=== PATIENT | female | born 1965 | race Caucasian/White ===

== ENCOUNTER 2020-10-14 15:58 | Inpatient (IN) | payer OTHER ==
[~2020-10-14] VITALS: Ht 165.1 cm; Wt 62.8 kg
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
[2020-10-14] MEDS ORDERED: LORazepam 2 MG/ML, 1ML ONE (16:14)
[2020-10-14 16:16] LABS: MICROSCOPIC AUTO
[2020-10-14] MEDS ORDERED: PROPOFOL 100 ML IV ONE (16:21)
[2020-10-14 16:22] LABS: MEAN CORPUSCULAR HEMOGLOBIN 28.6 pg (27.0-34.8); MEAN CORPUSCULAR HGB CONC 32.4 g/dL (32.4-35.8); MEAN PLATELET VOLUME 9.1 fL (7.4-10.4); PLATELET COUNT 200 x10^3/uL (130-400); RED BLOOD COUNT 4.41 x10^6/uL (3.82-5.3); RED CELL DISTRIBUTION WIDTH 13.6 % (9.6-15.2)
[2020-10-14] MEDS ORDERED: ETOMIDATE 20 MG/10 ML IV ONE (16:30)
[2020-10-14] MEDS ORDERED: ONDANSETRON 2MG/ML, 2ML IVPush PRN (16:30)
[2020-10-14] MEDS ORDERED: LABETALOL 5MG/ML, 20ML IVPush PRN (16:30)
[2020-10-14] MEDS ORDERED: BISACODYL 10 MG SUPP PR PRN ×2 (16:30→21:30)
[2020-10-14] MEDS ORDERED: ENALAPRILAT 1.25 MG/ML, 2ML IVPush PRN (16:30)
[2020-10-14] MEDS ORDERED: SODIUM CHLORIDE 0.9% 1,000 ML IV ONE (16:30)
[2020-10-14] MEDS ORDERED: SUCCINYLCHOLINE 20 MG/ML, 10ML IV ONE (16:30)
[2020-10-14] MEDS ORDERED: morphine SULFATE 10 MG/ML, 1ML IVPush PRN (16:30)
[2020-10-14] MEDS ORDERED: LORazepam 2 MG/ML, 1ML IVPush ONE (16:30)
[2020-10-14] MEDS: SODIUM CHLORIDE 0.9% 1,000 ML IV SCH (16:30)
[2020-10-14] MEDS ORDERED: POLYETHYLENE GLYCOL 17 GM PACKET PO PRN (16:30)
[2020-10-14] MEDS ORDERED: LORazepam 2 MG/ML, 1ML IVPush PRN (16:30)
--- NOTE | 2020-10-14 16:30 | NUR ---
PT HAVING SX. NOTFIED. 2MG ATIVAN ADM PER VEBAL ORDER. ORDERS TO INUBATE TO PROTECT AIRWAY.
[2020-10-14 16:32] LABS: ALANINE AMINOTRANSFERASE 21 U/L (12-78); ALBUMIN 3.8 g/dL (3.4-5.0); ANION GAP 11 mmol/L (5-15); CALCIUM 8.5 mg/dL (8.5-10.1); CHLORIDE 114 mmol/L (98-107); CREATININE 0.97 mg/dL (0.55-1.02)
[2020-10-14 16:33] LABS: SALICYLATE LEVEL < 1.7 mg/dL (2.8-20.0)
[2020-10-14 16:38] LABS: ALKALINE PHOSPHATASE 80 U/L (45-117); BILIRUBIN,TOTAL 0.2 mg/dL (0.2-1.0); TOTAL PROTEIN 7.1 g/dL (6.4-8.2)
--- NOTE | 2020-10-14 16:40 | NUR ---
PT TUBED. 8.0 ET TUBE. 22 AT THE TEETH. FUNK AND OG TUBE INSERTED
[2020-10-14] MEDS: PROPOFOL 100 ML IV SCH ×3 (16:48→20:50)
[2020-10-14 16:50] LABS: INTERNATIONAL NORMALIZED RATIO 1.06 (0.93-1.1); PROTHROMBIN TIME 11.3 Seconds (9.6-11.5)
[2020-10-14] MEDS ORDERED: PROPOFOL 100 ML IV PRN ×2 (17:00→21:30)
[2020-10-14] MEDS ORDERED: MIDAZOLAM 1 MG/ML, 2ML ONE (17:03)
[2020-10-14 17:04] LABS: MD YES
[2020-10-14 17:06] LABS: BAND#(MANUAL) 0.72 x10^3/uL; BANDS%(MANUAL) 4 % (0-7); BASOS#(MANUAL) 0.18 x10^3/uL (0-0.1); BASOS% (MANUAL) 1 % (0-1); LYMPHS% (MANUAL) 5 % (22-44); MONOS#(MANUAL) 0.54 x10^3/uL (0.3-2.7); MONOS% (MANUAL) 3 % (2-9)
[2020-10-14 17:07] LABS: <PLATELET ESTIMATE> ADEQUATE; <PLT MORPHOLOGY> NORMAL PLT MORPH; <RBC MORPHOLOGY> NORMAL; SEGS% (MANUAL) 87 % (42-75)
[2020-10-14] MEDS: PIPERACILLIN/TAZO 3.375 GM in DEXTROSE 5% 50 ML IV SCH ×2 (17:22→22:25)
[2020-10-14] MEDS ORDERED: SODIUM PHOSPHATE 20 MMOL in SODIUM CHLORIDE 0.9% 500 ML IV ONE (17:30)
[2020-10-14] MEDS ORDERED: MIDAZOLAM 1 MG/ML, 2ML IVPush ONE (17:30)
[2020-10-14] MEDS ORDERED: PHARMACY MAY ADJ FOR RENAL FX MC SCH ×2 (17:30→21:30)
[2020-10-14] MEDS: MIDAZOLAM HCL 50 MG in SODIUM CHLORIDE 0.9% 40 ML IV PRN (18:01)
--- NOTE | 2020-10-14 18:02 | NUR ---
PT RESTLESS. SPOKE WITH MD COCHRAN ABOUT RUNNING VERSED DRIP. SEE MAR FOR INTERVENTIONS. "I ABSOLUTELY WANT THE VERSED DRIP RUNNING"
--- NOTE | 2020-10-14 18:50 | NUR ---
received report from RODNEY Rebolledo. [facility].
--- NOTE | 2020-10-14 19:35 | NUR ---
patient difficult to sedate. propofol and versed drip increased.
--- NOTE | 2020-10-14 19:38 | NUR ---
another IV access placed.
--- NOTE | 2020-10-14 20:28 | NUR ---
report to RODNEY Read
[2020-10-14] MEDS ORDERED: ETOMIDATE 20 MG/10 ML ONE (20:30)
[2020-10-14] MEDS ORDERED: SUCCINYLCHOLINE 20 MG/ML, 10ML ONE (20:30)
[2020-10-14 20:52] LABS: SALICYLATE LEVEL < 1.7 mg/dL (2.8-20.0)
[2020-10-14] MEDS: INSULIN LISPRO 100 UNITS/ML, PEN SQ-INSULIN SCH (21:00)
[2020-10-14] MEDS ORDERED: LIDOCAINE-MPF 1%, 2ML ENDO PRN (21:30)
[2020-10-14] MEDS ORDERED: SENNA/DOCUSATE TABLET NG PRN (21:30)
[2020-10-14] MEDS ORDERED: SENNA 176 MG/5 ML ORAL SOL NG PRN (21:30)
[2020-10-14] MEDS ORDERED: MIDAZOLAM 1 MG/ML, 5ML IVPush PRN (21:30)
[2020-10-14] MEDS ORDERED: LACTULOSE 20 GM/30 ML UDC NG PRN (21:30)
[2020-10-14] MEDS ORDERED: FENTANYL PF 100 MCG/2ML IVPush PRN (21:30)
[2020-10-14] MEDS: FAMOTIDINE 20 MG/2 ML IVPush SCH (22:23)
[2020-10-14] MEDS: HEPARIN 5,000 UNITS/ML, 1ML SQ SCH (22:23)
[2020-10-14 23:27] VITALS: BP 125/82
[2020-10-15 00:17] LABS: AMPHETAMINE SCREEN, URINE Negative (Negative); BARBITURATE SCREEN, URINE Negative (Negative); BENZODIAZEPINE SCREEN, URINE Positive (Negative); CANNABINOID SCREEN, URINE Negative (Negative); COCAINE SCREEN, URINE Negative (Negative); METHADONE SCREEN, URINE Negative (Negative); OPIATE SCREEN, URINE Negative (Negative)
[2020-10-15] MEDS: MIDAZOLAM HCL 50 MG in SODIUM CHLORIDE 0.9% 40 ML IV PRN (00:28)
[2020-10-15] MEDS: SODIUM CHLORIDE 0.9% 1,000 ML IV SCH ×4 (00:28→20:25)
[2020-10-15 04:55] LABS: BASOPHILS % (AUTO) 1 % (0-1); EOSINOPHILS % (AUTO) 0 % (1-7); LYMPHOCYTES % (AUTO) 14 % (22-44); MD NO; MEAN CORPUSCULAR HEMOGLOBIN 29.3 pg (27.0-34.8); MEAN CORPUSCULAR HGB CONC 32.9 g/dL (32.4-35.8); MEAN PLATELET VOLUME 9.2 fL (7.4-10.4); MONOCYTES % (AUTO) 9 % (2-9); NEUTROPHILS % (AUTO) 76 % (42-75); PLATELET COUNT 183 x10^3/uL (130-400); RED BLOOD COUNT 3.79 x10^6/uL (3.82-5.3); RED CELL DISTRIBUTION WIDTH 13.3 % (9.6-15.2)
[2020-10-15 05:01] LABS: ALANINE AMINOTRANSFERASE 25 U/L (12-78); ALBUMIN 3.3 g/dL (3.4-5.0); ANION GAP 8 mmol/L (5-15); CALCIUM 7.9 mg/dL (8.5-10.1); CHLORIDE 118 mmol/L (98-107); CREATININE 0.76 mg/dL (0.55-1.02)
[2020-10-15 05:03] LABS: ALKALINE PHOSPHATASE 62 U/L (45-117); BILIRUBIN,TOTAL 0.3 mg/dL (0.2-1.0); TOTAL PROTEIN 6.2 g/dL (6.4-8.2)
[2020-10-15] MEDS: HEPARIN 5,000 UNITS/ML, 1ML SQ SCH ×3 (05:12→20:25)
[2020-10-15] MEDS: PIPERACILLIN/TAZO 3.375 GM in DEXTROSE 5% 50 ML IV SCH ×4 (05:12→20:26)
[2020-10-15] MEDS: INSULIN LISPRO 100 UNITS/ML, PEN SQ-INSULIN SCH ×4 (06:04→20:28)
[2020-10-15] MEDS: SENNA/DOCUSATE TABLET PO SCH (09:00)
[2020-10-15] MEDS ORDERED: POTASSIUM CHLORIDE 40 MEQ in SODIUM CHLORIDE 0.9% 500 ML IV ONE (09:00)
[2020-10-15] MEDS: FAMOTIDINE 20 MG/2 ML IVPush SCH ×2 (10:27→20:25)
[2020-10-16] MEDS: SODIUM CHLORIDE 0.9% 1,000 ML IV SCH (03:22)
[2020-10-16] MEDS: PIPERACILLIN/TAZO 3.375 GM in DEXTROSE 5% 50 ML IV SCH ×4 (03:22→22:59)
[2020-10-16] MEDS: HEPARIN 5,000 UNITS/ML, 1ML SQ SCH ×2 (04:27→15:18)
[2020-10-16 04:39] LABS: BASOPHILS % (AUTO) 1 % (0-1); EOSINOPHILS % (AUTO) 1 % (1-7); LYMPHOCYTES % (AUTO) 20 % (22-44); MEAN CORPUSCULAR HEMOGLOBIN 29.4 pg (27.0-34.8); MEAN CORPUSCULAR HGB CONC 33.3 g/dL (32.4-35.8); MEAN PLATELET VOLUME 9.2 fL (7.4-10.4); MONOCYTES % (AUTO) 8 % (2-9); NEUTROPHILS % (AUTO) 70 % (42-75); PLATELET COUNT 151 x10^3/uL (130-400); RED CELL DISTRIBUTION WIDTH 13.8 % (9.6-15.2)
[2020-10-16 04:40] LABS: MD NO
[2020-10-16 04:53] LABS: ANION GAP 4 mmol/L (5-15); CALCIUM 8.3 mg/dL (8.5-10.1); CHLORIDE 115 mmol/L (98-107); CREATININE 0.61 mg/dL (0.55-1.02)
[2020-10-16] MEDS: INSULIN LISPRO 100 UNITS/ML, PEN SQ-INSULIN SCH ×2 (05:47→11:00)
[2020-10-16] MEDS: OXYcodone IR 5MG TABLET PO PRN (06:43)
[2020-10-16] MEDS: POTASSIUM CHLORIDE 20 MEQ PACKET PO SCH ×3 (09:05→20:43)
[2020-10-16] MEDS: SENNA/DOCUSATE TABLET PO SCH (09:06)
[2020-10-16] MEDS: FAMOTIDINE 20 MG/2 ML IVPush SCH (09:06)
[2020-10-16 17:05] VITALS: BP 164/104
[2020-10-16 17:12] VITALS: BP 163/103
[2020-10-16] MEDS ORDERED: ENOXAPARIN 40 MG/0.4 ML SQ SCH (17:30)
[2020-10-16] MEDS ORDERED: LABETALOL 5MG/ML, 20ML IVPush PRN (17:30)
[2020-10-16] MEDS: AMLODIPINE 5 MG TABLET PO SCH (17:41)
[2020-10-16 18:29] VITALS: BP 164/113
[2020-10-16 18:49] VITALS: BP 143/92
[2020-10-16 20:36] VITALS: BP 142/90
[2020-10-16] MEDS: LEVETIRACETAM 500 MG TABLET PO SCH (20:42)
[2020-10-17 02:50] VITALS: BP 135/84
[2020-10-17] MEDS: POTASSIUM CHLORIDE 20 MEQ PACKET PO SCH (02:52)
[2020-10-17] MEDS: PIPERACILLIN/TAZO 3.375 GM in DEXTROSE 5% 50 ML IV SCH ×2 (05:00→11:05)
[2020-10-17 05:01] LABS: ALBUMIN 3.3 g/dL (3.4-5.0); ANION GAP 5 mmol/L (5-15); CALCIUM 8.9 mg/dL (8.5-10.1); CHLORIDE 111 mmol/L (98-107)
[2020-10-17 05:03] LABS: CREATININE 0.63 mg/dL (0.55-1.02)
[2020-10-17 05:04] LABS: ALANINE AMINOTRANSFERASE 31 U/L (12-78); ALKALINE PHOSPHATASE 58 U/L (45-117); BILIRUBIN,TOTAL 0.6 mg/dL (0.2-1.0)
[2020-10-17] MEDS: OXYcodone IR 5MG TABLET PO PRN (05:06)
[2020-10-17 05:15] LABS: BASOPHILS % (AUTO) 1 % (0-1); EOSINOPHILS % (AUTO) 2 % (1-7); LYMPHOCYTES % (AUTO) 26 % (22-44); MEAN CORPUSCULAR HEMOGLOBIN 29.4 pg (27.0-34.8); MEAN CORPUSCULAR HGB CONC 33.5 g/dL (32.4-35.8); MEAN PLATELET VOLUME 9.6 fL (7.4-10.4); MONOCYTES % (AUTO) 9 % (2-9); NEUTROPHILS % (AUTO) 62 % (42-75); PLATELET COUNT 177 x10^3/uL (130-400); RED BLOOD COUNT 3.83 x10^6/uL (3.82-5.3); RED CELL DISTRIBUTION WIDTH 13.6 % (9.6-15.2)
[2020-10-17 05:18] LABS: MD NO
[2020-10-17 07:25] VITALS: BP 123/83
[2020-10-17] MEDS: LEVETIRACETAM 500 MG TABLET PO SCH ×2 (08:26→17:42)
[2020-10-17] MEDS: AMLODIPINE 5 MG TABLET PO SCH (08:26)
[2020-10-17] MEDS: SENNA/DOCUSATE TABLET PO SCH (08:26)
[2020-10-17] MEDS ORDERED: GADOTERATE 7.5 MMOL/15ML SYR ONE (13:02)
[2020-10-17 13:37] VITALS: BP 124/84
[2020-10-17] MEDS ORDERED: AMOX1TAB12 PO (16:57)
[2020-10-17] MEDS ORDERED: LEVE500T53 PO (16:57)
[2020-10-17] MEDS ORDERED: AMLO-150 PO (16:57)
[2020-10-17] MEDS ORDERED: AMOXICILLIN/CLAV 875-125MG TABLET ONE (17:41)
[2020-10-17] MEDS ORDERED: AMOXICILLIN/CLAV 875-125MG TABLET PO SCH (21:00)
== END 2020-10-17 18:08 | disposition home or self-care (01) | DRG 208 ==
LOC: ED 16:20 → EDBD 16:25 → EDIP 16:25 → CCU 20:43 → 5SO 10-16 16:22
PROVIDERS: ADMIT Internal Medicine; ATTEND Internal Medicine
PROC: 0BH17EZ Insertion of Endotracheal Airway into Trachea, Via Natural or Artificial Opening (ICD-10-PCS; principal; 2020-10-14)
PROC: 5A1935Z Respiratory Ventilation, Less than 24 Consecutive Hours (ICD-10-PCS; 2020-10-14)
DX: J69.0 Pneumonitis due to inhalation of food and vomit (principal); J96.01 Acute respiratory failure with hypoxia; G93.41 Metabolic encephalopathy; C71.9 Malignant neoplasm of brain, unspecified; E87.0 Hyperosmolality and hypernatremia; E87.1 Hypo-osmolality and hyponatremia; E87.2 Acidosis; Z99.11 Dependence on respirator [ventilator] status; G40.409 Other generalized epilepsy and epileptic syndromes, not intractable, without status epilepticus; D63.8 Anemia in other chronic diseases classified elsewhere; E83.39 Other disorders of phosphorus metabolism; E87.6 Hypokalemia; E88.09 Other disorders of plasma-protein metabolism, not elsewhere classified; I10 Essential (primary) hypertension; Z79.899 Other long term (current) drug therapy; Z82.3 Family history of stroke; R94.31 Abnormal electrocardiogram [ECG] [EKG]; E11.9 Type 2 diabetes mellitus without complications
CPT/HCPCS: 36415; 36600; 70450; 70551; 70552; 71045; 80048; 80053; 80299; 80307; 80320; 80329; 81001; 82140; 82803; 82962; 83036; 83690; 83735; 84100; 84443; 84478; 84703; 85025; 85610; 87040; 87070; 87081; 87205; 93005; 94002; 94003; 94690; 95819; 96374; 99291; G0378; J1644; J1650; J2250; J2543; J2704; J3480; A9575; G0480; J0330; J1815; J2060; J7030; J7040